=== PATIENT | female | born 1975 | race Two or more races ===

== ENCOUNTER 2024-01-06 08:32 | Emergency (ER) | payer MEDICAID, OTHER ==
[~2024-01-06] VITALS: Ht 162.6 cm; Wt 86.4 kg
[~2024-01-06 08:32] MED LIST: IBUP-1986 PO
[2024-01-06] MEDS ORDERED: HYDR-3965 PO (10:13)
[2024-01-06] MEDS ORDERED: DICL50TA8 PO (10:13)
[2024-01-06] MEDS: HYDROcodone/acetaminophen 5mg/325mg tablet PO ONE (10:32)
[2024-01-06] MEDS: ketorolac trometh 15mg/ml vial 15 MG/ML ML IM ONE (10:32)
[2024-01-06 10:38] VITALS: BP 134/78; PULSE 88; RESP 16; TEMP 98.5; O2SAT 98
== END 2024-01-06 10:39 | disposition home or self-care (01) ==
LOC: ER 08:33
DX: M76.51 Patellar tendinitis, right knee (principal); Z79.1 Long term (current) use of non-steroidal anti-inflammatories (NSAID)
CPT/HCPCS: 73564; 96372; 99283; J1885

== ENCOUNTER 2024-01-14 15:33 | Emergency (ER) | payer MEDICAID ==
[~2024-01-14] VITALS: Ht 162.6 cm; Wt 94.2 kg
[~2024-01-14 15:33] MED LIST changes: +DICL50TA8 PO; +HYDR-3965 PO
[2024-01-14 18:38] LABS: BASOPHILS # (AUTO) 0.1 X10'3 (0-0.2); BASOPHILS % (AUTO) 0.9 % (0-1); EOSINOPHILS # (AUTO) 0.5 X10'3 (0-0.9); EOSINOPHILS % (AUTO) 4.9 % (0-6); HEMATOCRIT 37.6 % (35.0-45.0); HEMOGLOBIN 12.3 g/dl (12.0-16.0); LYMPHOCYTES # (AUTO) 1.9 X10'3 (1.1-4.8); LYMPHOCYTES % (AUTO) 20.7 % (21-51); MEAN CORPUSCULAR HEMOGLOBIN 31.2 PG (27.0-31.0); MEAN CORPUSCULAR HGB CONC 32.9 g/dL (33.0-36.5); MEAN CORPUSCULAR VOLUME 94.8 FL (78-98); MONOCYTES # (AUTO) 0.9 X10'3 (0-0.9); MONOCYTES % (AUTO) 9.4 % (2-12); NEUTROPHILS # (AUTO) 5.9 X10'3 (1.8-7.7); NEUTROPHILS % (AUTO) 64.1 % (42-75); PLATELET COUNT 256 X10'3 (140-440); RED BLOOD COUNT 3.96 X10'6 (4.20-5.60); RED CELL DISTRIBUTION WIDTH 13.7 % (11.5-14.5); WHITE BLOOD COUNT 9.3 X10'3 (4.5-11.0)
[2024-01-14 18:55] LABS: ALBUMIN 2.9 G/DL (3.4-5.0); ANION GAP 5 (8-16); BLOOD UREA NITROGEN 15 MG/DL (7-18); BUN/CREATININE RATIO 17.2 (10.0-20.0); CALCIUM 8.7 MG/DL (8.5-10.1); CHLORIDE 106 MMOL/L (99-107); CREATININE 0.87 MG/DL (0.40-0.90); GLUCOSE 71 MG/DL (70-104); POTASSIUM 4.4 MMOL/L (3.5-5.1); PRO BRAIN NATRIURETIC PEPTIDE 359 PG/ML (0-125); SODIUM 139 MMOL/L (135-145); TOTAL CARBON DIOXIDE 28.3 MMOL/L (24-32); eCRCL 67 ML/MIN; eGFR 69 ML/MIN
[2024-01-14 19:01] LABS: BILIRUBIN,URINE NEGATIVE (Neg); CLARITY,URINE CLEAR (Clear); COLOR,URINE YELLOW (Yellow); GLUCOSE, URINE NEGATIVE (Neg); KETONES,URINE NEGATIVE (Neg); LEUKOCYTE ESTERASE ,URINE NEGATIVE (Neg); NITRITES, URINE NEGATIVE (Neg); OCCULT BLOOD,URINE NEGATIVE (Neg); PROTEIN,URINE NEGATIVE (Neg); UROBILINOGEN,URINE 0.2 E.U/dL (0.2-1.0)
[2024-01-14 19:13] LABS: UA COLLECTION TYPE CLN CATCH MIDSTREAM
[2024-01-14] MEDS ORDERED: FURO-150 PO (19:20)
[2024-01-14] MEDS: furosemide 10 MG/1 ML 10ml inj IV ONE (19:37)
[2024-01-14 19:40] VITALS: BP 176/99; PULSE 53; RESP 13; TEMP 98.7; O2SAT 99
== END 2024-01-14 20:13 | disposition home or self-care (01) ==
LOC: ER 15:34
DX: R60.0 Localized edema (principal); Z79.1 Long term (current) use of non-steroidal anti-inflammatories (NSAID); Z79.899 Other long term (current) drug therapy
CPT/HCPCS: 36415; 80048; 81003; 83880; 85025; 96374; 99285; J1940

== ENCOUNTER 2024-03-04 11:53 | Emergency (ER) | payer MEDICAID, OTHER ==
[~2024-03-04] VITALS: Ht 162.6 cm; Wt 92.2 kg
[~2024-03-04 11:53] MED LIST changes: -HYDR-3965 PO
[2024-03-04 12:08] VITALS: BP 210/117; PULSE 66; RESP 18; O2SAT 97
[2024-03-04] MEDS ORDERED: TETanus/Pertussis (Acell)/Diphther VAC/PF (Tdap-Adult) 0.5ml syringe IMVAC ONE (12:40)
[2024-03-04] MEDS: LIDOcaine 1% 30ml preserv. free vial IJ ONE (12:55)
[2024-03-04] MEDS ORDERED: acetaminophen 325mg tablet PO ONE (13:45)
[2024-03-04] MEDS ORDERED: ACET-1008 PO (13:47)
[2024-03-04 14:36] VITALS: TEMP 97.2
== END 2024-03-04 14:40 | disposition home or self-care (01) ==
LOC: ER 11:54
DX: S61.211A Laceration without foreign body of left index finger without damage to nail, initial encounter (principal); Z79.1 Long term (current) use of non-steroidal anti-inflammatories (NSAID); W26.8XXA Contact with other sharp object(s), not elsewhere classified, initial encounter; Y93.89 Activity, other specified; Y92.89 Other specified places as the place of occurrence of the external cause; Y99.8 Other external cause status
CPT/HCPCS: 12002; 99282; J7030; A6258; A6449

== ENCOUNTER → 2024-03-14 | Emergency (ER) | payer OTHER ==
[~2024-03-14] VITALS: Ht 162.6 cm; Wt 88.9 kg
[~2024-03-14] MED LIST changes: +ACET-1008 PO; +DOXY-1 PO; +RIFA300C65 PO; +rifampin 300mg capsule PO SCH
[2024-03-14 04:59] VITALS: BP 153/117; PULSE 66; RESP 17; TEMP 97.4; O2SAT 97
[2024-03-14] MEDS: DOXYCYCLINE 100MG CAPSULE PO STA (05:47)
[2024-03-14] MEDS: rifampin 300mg capsule PO ONE (05:47)
== END | disposition home or self-care (01) ==
LOC: ER 04:57
DX: L03.011 Cellulitis of right finger (principal); Z48.02 Encounter for removal of sutures
CPT/HCPCS: 26010; 26011; 99284

== ENCOUNTER 2025-02-21 15:43 | Emergency (ER) | payer OTHER ==
[~2025-02-21] VITALS: Ht 162.6 cm; Wt 83.6 kg
[~2025-02-21 15:43] MED LIST changes: -DOXY-1 PO; -rifampin 300mg capsule PO SCH
[2025-02-21 15:52] VITALS: BP 165/99; PULSE 56; RESP 18; TEMP 97.4; O2SAT 99
--- NOTE | 2025-02-21 16:35 | RADIOLOGY REPORT ---
Indication: Finger Pain Technique: DI FINGER(S)FINGERS Comparison: None FINDINGS/IMPRESSION: No radiographic evidence for acute fracture or dislocation. No significant soft tissue edema. No radiopaque foreign body. Mild degenerate changes left hand.
--- NOTE | 2025-02-21 16:44 | Physician Documentation ---
History of Present Illness ~ Chief Complaint: Finger pain Stated Complaint: FINGER PAIN Time Seen by MD: 15:58 OK to notify your PCP?: Yes Primary Medical Doctor: NONE Source: patient Mode of Arrival: POV Exam Limitations: no limitations HPI 49-year-old female presents with a left pinky pain while she was at work at [employer] a register drawer close on her finger. She is having pain in this finger but does still have range motion. No swelling noted. She has not taken medications prior to arrival for her symptoms. Tetanus within 5 years: Yes Medication Reconciliation Allergies: Coded Allergies: No Known Allergies (Unverified , 02/21/25) Scheduled Diclofenac Sodium (Diclofenac Sodium), 1 TAB PO Q12H Ibuprofen (Ibuprofen), 1 TAB PO Q8H Rifampin (Rifampin), 1 CAP PO Q12H Scheduled PRN Acetaminophen (Tylenol), 650 MG PO Q4H PRN PAIN PRN for pain, (Reported) Past Medical History Past Medical History: No Pertinent History Past Surgical History: no surgical history Alcohol Use: None Drug Use: none Review of Systems All Other Systems at this time: Reviewed and Negative Physical Exam Vital Signs: RN Vital Signs have been reviewed: Yes, Temperature: 97.4, Source: Temporal, Heart Rate: 56, Respiratory Rate: 18, BP: 165/99, Pulse Oximetry: 99, Weight: 83.600 Oxygen Flow Rate: 0 Pulse Oximetry Reflects: adequate oxygenation Physical Exam General: Alert, no distress. HEENT: No injection, moist mucous membranes. Neck: Full range of motion. Respiratory: No respiratory distress, equal chest rise and fall. Chest: No accessory muscle use. Cardiovascular: Regular rate and rhythm. Gastrointestinal: Nondistended. Extremities: No edema for redness to left pinky finger. The nail does appear broken and there is some bruising to the tip of her finger. There is good CSM, good sensation, decent range motion. Neurologic: Oriented x4. Psychiatric: Normal mood and affect. Skin: Normal color, warm and dry. Progress Results/Orders Reviewed/noted all lab results: Yes Results/Orders Orders - KAYLA SHAH [employer] P[employer] Finger(S) (02/21/25 15:58) Ortho Orders (02/21/25 ) Completed Orders - KAYLA SHAH [employer] PERSON Finger(S) (02/21/25 15:58) Ibuprofen Tablet (Motrin Tablet) (02/21/25 16:45) Acetaminophen 325mg Tablet (Tylenol Tabl (02/21/25 16:45) Medications Received in ER Medications (Trade) Dose Ordered Sig/Ronni Route PRN Reason Start Time Stop Time Status Last Admin Dose Admin (Motrin tablet) 400 mg ONCE ONCE PO 02/21/25 16:45 02/21/25 16:46 DC 02/21/25 17:01 400 MG (Tylenol tablet) 650 mg ONCE ONCE PO 02/21/25 16:45 02/21/25 16:46 DC 02/21/25 17:01 650 MG Vital Signs 02/21/25 15:52 Temp 97.4 Pulse 56 Resp 18 B/P (MAP) 165/99 Pulse Ox 99 O2 Flow Rate 0 EKG/XRAY/CT/US/VASC/MRI Bone/Soft Tissue X-Ray (Ext.) : Additional Comment Finger X ray as interpreted by me; no joint effusion, no acute fracture, no soft tissue swelling, no dislocation, or foreign body. Medical Decision Making Additional information obtaine: old records Findings She experienced her finger get caught in the register drawer. Physical exam reveals a bruised left pinky with a broken fingernail. The finger does not appear deformed. X-ray shows no acute fracture. We discussed follow up instructions was care instructions. I gave Tylenol and ibuprofen while in the department for pain relief. Patient is requesting [place] for pain relief. I declined this request as there was no fracture. Patient requesting temporary finger splint to provide extra support. Digit splint applied to provide some support with a broken nail. Patient educated to take splint off in 2 days to prevent mobility issues with her pinky, she agrees to the plan. General Diff Dx:Considerations: Include: Fracture Shoulder Diff Dx:Consideration: Include: Other Elbow Diff Dx:Considerations: Include: Other Wrist Diff Dx:Considerations: Include: Other Hand Diff Dx:Considerations: Include: Other Finger Diff Dx:Considerations: Include: Cellulitis, Dislocation, Fracture, Laceration, Open fracture Departure Disposition: HOME / SELF CARE / HOMELESS Impression: Primary Impression: Sprain Condition: Stable Discharge Instructions: Sprains Additional Instructions: X-ray was negative for acute fracture. Continue to ice 20 minutes on 20 minutes off for the next 48 hours and you can alternate ice and heat. Keep finger elevated above the level of the heart. Please rest it for a couple of days. You have been given a digit splint to temporarily provide extra support within the next 2 days. Please remove the splint into days to allow the finger to become mobile again and prevent permanent mobility issues. You can use [id number] Tylenol and ibuprofen for pain relief. You were given both of these while here in the department. Return back here for any new or worsening symptoms and follow up with her primary care provider. Referrals: NO PRIMARY CARE PROVIDER (PCP) Education Educated: Patient Educated regarding: diagnosis, treatment, prognosis, need for follow up Additional Comment Medical Screen Exam This patient recieved a medical screening examination. After reviewing the individual's medical complaints with presenting symptoms and performing an appropriate physical examination, it was determined that no immediate life- threatening emergency medical condition is present. This individual is also not a women having contractions. Signature Scribe Signature: . Attestation: Scribed for Kayla Shahp by Kayla Godwin NP . 02/21/25 16:45 Parts of this note were created using [employer] voice recognition software program. While efforts were made to correct any mistakes made by this voice recognition software program, nonsensical phrases may remain in this note. In addition, there may be errors and syntax, grammar, content and spelling. KAYLA SHAH Feb 21, 2025 16:44
[2025-02-21] MEDS: ibuprofen tablet 400 MG TABLET PO ONE (17:01)
== END 2025-02-21 17:27 | disposition home or self-care (01) ==
LOC: ER 15:43
DX: S93.505A Unspecified sprain of left lesser toe(s), initial encounter (principal); Z79.899 Other long term (current) drug therapy; X58.XXXA Exposure to other specified factors, initial encounter; Y93.89 Activity, other specified; Y92.89 Other specified places as the place of occurrence of the external cause; Y99.0 Civilian activity done for income or pay
CPT/HCPCS: 29130; 73140; 99283